=== PATIENT | female | born 1970 | race Caucasian/White ===

== ENCOUNTER 2021-07-22 11:31 | Emergency (ER) | payer BC ==
[~2021-07-22] VITALS: Ht 167.6 cm; Wt 105.2 kg
[2021-07-22 11:44] VITALS: BP 115/69
--- NOTE | 2021-07-22 11:58 | NUR ---
pt bib bls run s/p slip and fall at [employer] c/o buttock pain. pt denies loc. nad. safety maintained
--- NOTE | 2021-07-22 12:19 | NUR ---
PT TAKEN TO CT VIA [facility].
--- NOTE | 2021-07-22 12:28 | NUR ---
PT TAKEN TO ER BED 2 VIA [facility].
[2021-07-22 13:15] VITALS: BP 124/70
--- NOTE | 2021-07-22 13:15 | NUR ---
Patient discharged with v/s stable. Written and verbal after care instructions given and explained. Patient verbalized understanding. Ambulatory with steady gait. All questions addressed prior to discharge. Advised to follow up with PMD.
== END 2021-07-22 13:15 | disposition home or self-care (01) ==
LOC: MED 11:31
DX: S29.012A Strain of muscle and tendon of back wall of thorax, initial encounter (principal); S20.20XA Contusion of thorax, unspecified, initial encounter; S30.0XXA Contusion of lower back and pelvis, initial encounter; Z88.0 Allergy status to penicillin; Z88.8 Allergy status to other drugs, medicaments and biological substances; Z88.5 Allergy status to narcotic agent; W19.XXXA Unspecified fall, initial encounter; Y93.89 Activity, other specified; Y92.89 Other specified places as the place of occurrence of the external cause; Y99.8 Other external cause status
CPT/HCPCS: 99284